=== PATIENT | female | born 1975 | race Caucasian/White ===

== ENCOUNTER → 2016-12-16 | Outpatient (CLI) | payer BC ==
[~2016-12-16] MED LIST: FRRS300 PO; PRENTAB26 PO
== END | disposition home or self-care (01) ==
LOC: C.PAPS 14:35
PROVIDERS: ATTEND Obstetrics & Gynecology
DX: Z01.419 Encounter for gynecological examination (general) (routine) without abnormal findings (principal)

== ENCOUNTER → 2018-01-06 | Outpatient (CLI) | payer BC | END | disposition home or self-care (01) | LOC: C.PAPS 12:31 | PROVIDERS: ATTEND Obstetrics & Gynecology | DX: Z01.419 Encounter for gynecological examination (general) (routine) without abnormal findings (principal) ==

== ENCOUNTER → 2018-01-21 | Outpatient (CLI) | payer BC ==
--- NOTE | 2018-01-24 08:07 | MAMMOGRAPHY REPORT ---
BILATERAL DIGITAL SCREENING MAMMOGRAM TOMOSYNTHESIS WITH CAD: 01/21/2018 CLINICAL HISTORY: Routine screening. Patient has no complaints. TECHNIQUE: Breast tomosynthesis in addition to standard 2D mammography was performed. Current study was also evaluated with a Computer Aided Detection (CAD) system. COMPARISON: Comparison is made to exams dated: 11/01/2015 ultrasound and 11/01/2015 mammogram - [facility]. BREAST COMPOSITION: The tissue of both breasts is extremely dense, which lowers the sensitivity of m ammography. FINDINGS: There is possible architectural distortion in the far posterior, medial left breast on the CC view (CC tomosynthesis slice 38/58), which may project superiorly on the MLO view (MLO tomosynthe sis slice 37/58), for which additional exaggerated medial left CC, spot compression tomosynthesis vie ws and possible ultrasound are recommended. No other suspicious mass, architectural distortion or cluster of microcalcifications is seen. IMPRESSION: ACR BI-RADS CATEGORY 0: INCOMPLETE EVALUATION: NEED ADDITIONAL IMAGING EVALUATION The possible architectural distortion in the medial, far posterior left breast needs additional evalu ation. The patient will be called to schedule an appointment. Approximately 10% of breast cancers are not detected with mammography. A negative mammographic report should not delay biopsy if a clinically suggestive mass is present. Batool Mariee M.D. ay/:01/21/2018 14:57:09 Wrapper Counter: Marika Almonte, [facility] letter sent: Addl Imaging 0 BI-RADS Code: ACR BI-RADS Category 0: Incomplete Evaluation: Need Additional Imaging Evaluation
== END | disposition home or self-care (01) ==
LOC: C.MAMM 13:17
PROVIDERS: ATTEND Obstetrics & Gynecology
DX: Z12.31 Encounter for screening mammogram for malignant neoplasm of breast (principal); R92.8 Other abnormal and inconclusive findings on diagnostic imaging of breast

== ENCOUNTER → 2018-02-02 | Outpatient (CLI) | payer BC ==
--- NOTE | 2018-02-03 08:03 | MAMMOGRAPHY REPORT ---
UNILATERAL LEFT DIGITAL DIAGNOSTIC MAMMOGRAM TOMOSYNTHESIS AND TARGETED LEFT ULTRASOUND: 02/02/2018 CLINICAL HISTORY: 42-year-old woman called back from screening mammography for a possible area of arc hitectural distortion in the medial, far posterior left breast on the CC view, possibly projecting anton periorly based on the MLO view. TECHNIQUE: Spot compression tomosynthesis left CC and MLO views were obtained. COMPARISON: Comparison is made to exams dated: 01/21/2018 mammogram, 11/01/2015 ultrasound, and 015 mammogram - [facility] [place]. BREAST COMPOSITION: The tissue of the left breast is extremely dense, which lowers the sensitivity o f mammography. FINDINGS: The spot compression tomosynthesis view of the left breast centered in the medial and poste rior aspect of the breast demonstrates effacement of the questionable architectural distortion seen o n the screening mammogram. There is evidence of a sternalis muscle normal variant and blood vessels coursing throughout this area, suggesting that the possible distortion was a combination of these 2 f indings. There is no persistent architectural distortion in the superior left breast on the spot com pression MLO views. No other areas of distortion, obvious mass or suspicious calcifications identifi ed in the visualized left breast. Targeted ultrasound was performed throughout the medial left breast in the area of questionable disto rtion in the medial, far posterior breast on the cc view. Sonographically normal tissue is seen thro ughout the lower inner and upper inner quadrants of the left breast. There is no evidence of a suspi cious solid or cystic mass. IMPRESSION: ACR BI-RADS CATEGORY 2: BENIGN, TARGETED ULTRASOUND ACR BI-RADS CATEGORY 2: BENIGN 1. Effacement of the questionable area of distortion in the medial, far posterior left breast and al so in the superior left breast with supplemental spot compression tomosynthesis images. No suspiciou s sonographic correlate identified. These findings most likely represented normal overlapping tissue s and there is no mammographic or targeted sonographic evidence of malignancy in the left breast. Recommend return to annual screening mammography schedule. These results and recommendations were di scussed with the patient at the time of the exam. Approximately 10% of breast cancers are not detected with mammography. A negative mammographic report should not delay biopsy if a clinically suggestive mass is present. Batool Mariee M.D. ay/:02/02/2018 12:05:16 Digital Strategy Director: Marika Grimaldo RT(R)(M), [facility] [place] letter sent: Normal /2 BI-RADS Code: ACR BI-RADS Category 2: Benign Ultrasound BI-RADS: ACR BI-RADS Category 2: Benign
== END | disposition home or self-care (01) ==
LOC: C.MAMM 10:50
PROVIDERS: ATTEND Obstetrics & Gynecology
DX: R92.8 Other abnormal and inconclusive findings on diagnostic imaging of breast (principal); N64.89 Other specified disorders of breast